=== PATIENT | female | born 1965 | race American Indian/Alaskan Native ===

== ENCOUNTER 2017-12-04 15:52 | Emergency (ER) | payer SELFPAY ==
[2017-12-04] MEDS ORDERED: TYLENOL ONE (16:06)
[2017-12-04] MEDS ORDERED: TYLENOL PO ONE (16:31)
[2017-12-04] MEDS ORDERED: TORADOL IM ONE (19:52)
[2017-12-04] MEDS ORDERED: DELTASONE PO ONE (19:52)
--- NOTE | 2017-12-04 19:53 | Emergency Department Report ---
HPI - General Chief Complaint: Extremity Injury, Lower Time Seen by Provider: 12/04/17 19:43 - HPI HPI: She is a 52-year-old female with hypertension controlled with medication who presents to ED complaining of left upper thigh incline pain 4 days. Patient states 4 days ago she started to experience some left upper thigh groin to hip pain. Patient states she did not fall or sustain any injury. Patient describes pain as constant, tingling, throbbing aching sensation that left upper side anterior thigh area. Patient states pain is aggravated with movement. Patient states she is not diabetic. She denies any calf pain or swelling. She denies any swelling in the groin area. ED Past Medical Hx - Past Medical History Hx Hypertension: Yes Hx Congestive Heart Failure: No Hx Diabetes: No Hx Psychiatric Treatment: Yes (Anxiety, Panic Attacks) Hx Asthma: No Hx COPD: No Additional medical history: fibroids, mitral valve prolapse - Surgical History Additional Surgical History: , right knee surgery - Social History Smoking Status: Never Smoker Substance Use Type: None - Medications Home Medications: Home Medications Medication Instructions Recorded Confirmed Last Taken Type Atenolol [Tenormin] 25 mg PO DAILY #30 tablet 01/21/14 09/08/16 09/08/16 Rx Triamter/Hctz 37.5-25 mg 1 cap PO DAILY #30 02/12/15 09/08/16 09/08/[address] (Nf) 50 mg PO BID #30 tablet. 12/04/17 Unknown Rx traMADol [Ultram 50 MG tab] 50 mg PO Q6HR PRN #20 tablet 12/04/17 Unknown Rx ED Review of Systems ROS: Stated complaint: LEFT LEG PAIN/GROIN PAIN Other details as noted in HPI Constitutional: denies: chills, fever Eyes: denies: eye pain, eye discharge, vision change ENT: denies: ear pain, throat pain Respiratory: denies: cough, shortness of breath, wheezing Cardiovascular: denies: chest pain, palpitations Endocrine: no symptoms reported Gastrointestinal: denies: abdominal pain, nausea, diarrhea Genitourinary: denies: urgency, dysuria, discharge Musculoskeletal: myalgia. denies: back pain, joint swelling, arthralgia Skin: denies: rash, lesions, pruritus Neurological: denies: headache, weakness, numbness, paresthesias, confusion Psychiatric: denies: anxiety, depression Hematological/Lymphatic: denies: easy bleeding, easy bruising Physical Exam - Physical Exam Vital Signs: Vital Signs 12/04/17 12/04/17 15:55 16:31 Temperature 98.6 F Pulse Rate 116 H Respiratory 18 18 Rate Blood Pressure 162/96 O2 Sat by Pulse 100 Oximetry Physical Exam: GENERAL: Alert and oriented x3, no apparent distress, Normal Gait, atraumatic. HEAD: Head is normocephalic and a-traumatic. LUNGS: Symetrical with respiration, No wheezing, no rales or crackles, CTAB. HEART: S1, S2 present, regular rate and rhythm without murmur, no rubs, no gallops. Non tender to palpation BACK: Full range of motion, no spinal tenderness, nontender to palpation. EXTREMITIES/MUSCULOSKELETAL: No cyanosis, clubbing, rash, lesions or edema. Full ROM on all joints bilaterally. pedal Pulses 2+ bilaterally. LE and UE 5+ strength bilaterally, straight leg raise positive left side, tenderness, tenderness to palpation of upper anterior and lateral thigh. Homans sign negative NEUROLOGIC: The patient is cooperative with no focal neurologic deficits. Normal speech. Normal sensation in bilateral upper and lower extremities, No loss of sensation, . SKIN: Warm and dry, No lesions, No ulceration or induration present. ED Course Vital Signs 12/04/17 12/04/17 15:55 16:31 Temperature 98.6 F Pulse Rate 116 H Respiratory 18 18 Rate Blood Pressure 162/96 O2 Sat by Pulse 100 Oximetry ED Medical Decision Making - Radiology Data Radiology results: report reviewed, image reviewed FINAL REPORT EXAM: XR PELVIS 1-2V HISTORY: left hip pain TECHNIQUE: AP pelvis PRIORS: None. FINDINGS: No acute fractures are identified. The pubic symphysis and SI joints are intact. No evidence of hip fracture or dislocation. No bony lesions are identified. IMPRESSION: Negative no acute abnormalities seen Transcribed By: CHERELLE Dictated By: RAFY CESPEDES MD Electronically Authenticated By: RAFY CESPEDES MD Signed Date/Time: 12/04/17 0694 - Medical Decision Making This 52-year-old female presents with sciatic nerve vs muscle pain of the thigh ED course: Patient received Tylenol, Toradol and prednisone in ED. Pelvic x-ray shows no abnormalities I discussed all findings with the patient. 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 Patient reports feeling much better after the Toradol shot. She states that helped with her pain and she says a bit better. I discussed the patient to avoid stress activities. Vital signs are normal patient is in no acute distress. Patient unable to ambulate appropriately. Critical care attestation.: If time is entered above; I have spent that time in minutes in the direct care of this critically ill patient, excluding procedure time. ED Disposition Clinical Impression: Sciatica of left side without back pain, Left thigh pain, Myalgia Disposition: TO HOME OR SELFCARE Is pt being admited?: No Does the pt Need Aspirin: No Condition: Stable Instructions: Sciatica (ED), Trigger Point Pain (ED), Lumbar Radiculopathy (ED) , Arthralgia (ED) Additional Instructions: Make sure to follow up with the primary care physician as discussed. Take all your medications as you've been prescribed. If you have any worsening symptoms or develop new symptoms please return to ED immediately. Prescriptions: Diclofenac Dr (Nf) 50 mg PO BID #30 tablet. traMADol [Ultram 50 MG tab] 50 mg PO Q6HR PRN #20 tablet PRN Reason: Pain Referrals: MAYELA VINSON MD [Primary Care Provider] - 3-5 Days NOREEN LARKIN MD [Staff Physician] - 3-5 Days TRINITY JIANG MD [Staff Physician] - 3-5 Days [facility] [Outside] - 3-5 Days [facility] [Outside] - 3-5 Days [facility] [Outside] - 3-5 Days Forms: Work/School Release Form(ED) Time of Disposition: 21:30
--- NOTE | 2017-12-04 20:27 | XRay Report ---
FINAL REPORT EXAM: XR PELVIS 1-2V HISTORY: left hip pain TECHNIQUE: AP pelvis PRIORS: None. FINDINGS: No acute fractures are identified. The pubic symphysis and SI joints are intact. No evidence of hip fracture or dislocation. No bony lesions are identified. IMPRESSION: Negative no acute abnormalities seen
[2017-12-04 21:18] VITALS: BP 112/67
== END 2017-12-04 21:31 | disposition home or self-care (01) ==
LOC: ED 15:52
DX: M54.32 Sciatica, left side (principal); M79.652 Pain in left thigh; I10 Essential (primary) hypertension
CPT/HCPCS: 72170; 96372; 99283; J1885; J7512

== ENCOUNTER 2019-01-27 13:53 | Emergency (ER) | payer OTHER ==
[2019-01-27 14:09] VITALS: BP 156/100
--- NOTE | 2019-01-27 14:10 | Emergency Department Report ---
Blank Doc - Documentation Documentation: This is a 53 y.o. female that presents to ED with right groin pain and fever x 1 week. Ordered XR right hip. Fast track for further evaluation.
--- NOTE | 2019-01-27 15:02 | XRay Report ---
RIGHT HIP, 2 views: History: Right groin pain. The bony architecture is intact without evidence of fracture or dislocation. No significant soft tissue abnormality is seen. IMPRESSION: Normal right hip.
[2019-01-27] MEDS ORDERED: TORADOL IM ONE (17:41)
--- NOTE | 2019-01-27 17:53 | Emergency Department Report ---
ED Extremity Problem HPI - General Chief complaint: Extremity Injury, Lower Stated complaint: SEVERE PAIN GROIN/ PAIN ON SIDE Time Seen by Provider: 01/27/19 14:04 Source: patient Mode of arrival: Ambulatory Limitations: No Limitations - History of Present Illness Initial comments: Pt is a 53 yo female who presents with pain in her right gluteus and pain on her right, lateral hip radiating down the lateral side of her right leg. She states she has had the pain for approximately 3 months. She denies any fall or injury. She has been able to ambulate without difficulty. She states it feels like a throbbing pain. The patient states she often walks up steps. She has had similar pain previously on her left side and was seen in the ED and at that time diagnosed with sciatica. The patient denies any numbness, tingling, back pain, or weakness. She has not attempted any medication to relieve the pain. MD Complaint: extremity pain (right gluteus, right hip ) Onset/Timin -: month(s) Location: right, lower extremity History of Same: Yes Radiation: distal Severity scale (0 -10): 6 Quality: other (throbbing) Improves with: rest Worsens with: exertion, palpation Associated Symptoms: denies other symptoms - Related Data Previous Rx's Medication Instructions Recorded Last Taken Type RX: Atenolol [Tenormin] 25 mg PO DAILY #30 tablet 01/21/14 09/08/16 Rx Triamter/Hctz 37.5-25 mg 1 cap PO DAILY #30 02/12/15 09/08/16 Rx RX: Potassium Chloride 10 meq PO DAILY #3 capsule.er 11/10/18 Unknown Rx RX: Naproxen 250 mg PO Q8HR PRN #20 tablet 01/27/19 Unknown Rx Tizanidine HCl [Zanaflex] 2 mg PO DAILY PRN #10 capsule 01/27/19 Unknown Rx Allergies Allergy/AdvReac Type Severity Reaction Status Date / Time lisinopril Allergy Anaphylaxis Verified 09/10/14 00:53 ED Review of Systems ROS: Stated complaint: SEVERE PAIN GROIN/ PAIN ON SIDE Other details as noted in HPI Comment: All other systems reviewed and negative Musculoskeletal: as per HPI ED Past Medical Hx - Past Medical History Hx Hypertension: Yes Hx Congestive Heart Failure: No Hx Diabetes: No Hx Psychiatric Treatment: Yes (Anxiety, Panic Attacks) Hx Asthma: No Hx COPD: No Additional medical history: fibroids, mitral valve prolapse - Surgical History Past Surgical History?: Yes Additional Surgical History: , right knee surgery - Social History Smoking Status: Never Smoker Substance Use Type: None - Medications Home Medications: Home Medications Medication Instructions Recorded Confirmed Last Taken Type RX: Atenolol [Tenormin] 25 mg PO DAILY #30 tablet 01/21/14 09/08/16 09/08/16 Rx Triamter/Hctz 37.5-25 mg 1 cap PO DAILY #30 02/12/15 09/08/16 09/08/16 Rx RX: Potassium Chloride 10 meq PO DAILY #3 capsule.er 11/10/18 Unknown Rx RX: Naproxen 250 mg PO Q8HR PRN #20 tablet 01/27/19 Unknown Rx Tizanidine HCl [Zanaflex] 2 mg PO DAILY PRN #10 capsule 01/27/19 Unknown Rx ED Physical Exam - General Limitations: No Limitations General appearance: alert, in no apparent distress - Head Head exam: Present: atraumatic, normocephalic - Eye Eye exam: Present: normal appearance - ENT ENT exam: Present: mucous membranes moist - Extremities Exam Extremities exam: Present: other (TTP over the right gluteus muscle, TTP over the right IT band, FROM of RLE ) ED Course Vital Signs 01/27/19 14:05 Temperature 98.3 F Pulse Rate 89 Respiratory 16 Rate Blood Pressure 156/100 O2 Sat by Pulse 97 Oximetry ED Medical Decision Making - Radiology Data Radiology results: image reviewed XR right hip with no acute abnormality - Medical Decision Making XR of right hip shows no acute abnormality. Pt is able to ambulate without difficulty and has FROM of RLE. Will give pt an anti-inflammatory and will give muscle relaxer to take at night. Advised pt not to drive with muscle relaxer. Advised pt to follow up with Dr. Roland if continuing to have the discomfort. Advised to follow up in ED if new or worsening sx. - Differential Diagnosis Muscle strain, IT band syndrome, Sciatica Critical care attestation.: If time is entered above; I have spent that time in minutes in the direct care of this critically ill patient, excluding procedure time. ED Disposition Clinical Impression: Muscle strain of gluteal region Qualifiers: Encounter type: initial encounter Laterality: right Qualified Code(s): S76.011A - Strain of muscle, fascia and tendon of right hip, initial encounter IT band syndrome Qualifiers: Laterality: right Qualified Code(s): M76.31 - Iliotibial band syndrome, right leg HTN (hypertension) Qualifiers: Hypertension type: essential hypertension Qualified Code(s): I10 - Essential (primary) hypertension Disposition: - TO HOME OR SELFCARE Is pt being admited?: No Does the pt Need Aspirin: No Condition: Stable Instructions: Muscle Strain (ED), Hypertension (ED) Additional Instructions: Advised pt to follow up with ramila Jain if continue to have pain. Advised pt to only take the zanflex once at night to help with muscle spasms and cannot drive while taking the medication. Advised pt to follow up with PCP in the next few days. Discussed with pt if new or worsening sx then return to the ED. Prescriptions: RX: Naproxen 250 mg PO Q8HR PRN #20 tablet PRN Reason: Pain, Moderate (4-6) Tizanidine HCl [Zanaflex] 2 mg PO DAILY PRN #10 capsule PRN Reason: Muscle Spasm Referrals: [facility] SARABJIT [Primary Care Provider] - 3-5 Days ROZINA ROLAND MD [Staff Physician] - 3-5 Days Print Language: SLOVENIAN
== END 2019-01-27 18:09 | disposition home or self-care (01) ==
LOC: ED 13:53
DX: S76.011A Strain of muscle, fascia and tendon of right hip, initial encounter (principal); M76.31 Iliotibial band syndrome, right leg; I10 Essential (primary) hypertension; Z88.8 Allergy status to other drugs, medicaments and biological substances; W10.8XXA Fall (on) (from) other stairs and steps, initial encounter; Y93.89 Activity, other specified; Y92.89 Other specified places as the place of occurrence of the external cause; Y99.8 Other external cause status
CPT/HCPCS: 73502; 96372; 99283; J1885

== ENCOUNTER 2020-09-10 22:35 | Emergency (ER) | payer MEDICAID ==
[2020-09-10 23:35] LABS: Calcium 9.4 mg/dL (8.4-10.2); Hematocrit 41.5 % (30.3-42.9); Hemoglobin 13.4 gm/dl (10.1-14.3); Mean Corpuscular HGB Conc 32 % (30-34); Mean Corpuscular Volume 84 fl (79-97); Platelet Count 170 K/mm3 (140-440); Red Blood Count 4.95 M/mm3 (3.65-5.03); Red Cell Distribution Width 14.2 % (13.2-15.2)
[2020-09-11] MEDS ORDERED: POTASSIUM CHLORIDE ER 20 MEQ TAB PO ONE (02:55)
[2020-09-11 02:59] LABS: Anisocytosis 1+; Total Cells Counted 100
[2020-09-11 03:00] LABS: Platelet Estimate Consistent w Auto
[2020-09-11] MEDS ORDERED: SODIUM CHLORIDE 0.9% 500 ML 500 ML IV ONE (03:10)
[2020-09-11] MEDS ORDERED: MORPHINE 4 MG/1 ML INJ IV ONE (03:10)
--- NOTE | 2020-09-11 03:19 | Emergency Department Report ---
HPI - General Chief Complaint: Fever Time Seen by Provider: 09/11/20 02:54 - HPI HPI: This is a 54-year-old female presents to the emergency department from home with complaint of generalized body pain that has been going on since earlier this afternoon. Patient also says that she felt warm earlier and checked her temperature and found that she had a low-grade fever, 100.2 F. She took some Tylenol for her symptoms prior to arrival. The patient has a history of right- sided breast cancer for which she is undergoing chemotherapy. The patient has a lso been receiving Neulasta every 2 weeks, and last received it about 1 week ago. Apparently the patient says that she was told that she could have some "bone pain" but says "I did not think it would be anything like this." She denies any rash, extremity swelling, chest pain, shortness of breath, cough, nausea, vomiting, sore throat. The patient had a left-sided chest port placed on the fifth of this month. She called her oncologist, Dr. Mixon ([facility]) and was told to come to the emergency department for further evaluation. Her breast surgeon is Dr. Sanders. ED Past Medical Hx - Past Medical History Previous Medical History?: Yes Hx Hypertension: Yes Hx Congestive Heart Failure: No Hx Diabetes: No Hx of Cancer: Yes (Breast) Hx Psychiatric Treatment: Yes (Anxiety, Panic Attacks) Hx Asthma: No Hx COPD: No Additional medical history: fibroids, mitral valve prolapse - Surgical History Past Surgical History?: Yes Additional Surgical History: , right knee surgery - Social History Smoking Status: Never Smoker Substance Use Type: None - Medications Home Medications: Home Medications Medication Instructions Recorded Confirmed Last Taken Type atenoloL [Tenormin] 25 mg PO DAILY #30 tablet 01/21/14 09/08/16 09/08/16 Rx Triamter/Hctz 37.5-25 mg 1 cap PO DAILY #30 02/12/15 09/08/16 09/08/16 Rx Potassium Chloride 10 meq PO DAILY #3 capsule.er 11/10/18 Unknown Rx Tizanidine HCl [Zanaflex] 2 mg PO DAILY PRN #10 capsule 01/27/19 Unknown Rx HYDROcodone/APAP 5-325 [[place] 1 each PO Q4HR PRN #12 tablet 07/30/20 Unknown Rx 5/325] Naproxen 500 mg PO Q12HR PRN #20 tablet 07/30/20 Unknown Rx Potassium Chloride 40 meq PO DAILY 30 Days #30 liquid 07/30/20 Unknown Rx oxyCODONE /ACETAMINOPHEN [Percocet 1 tab PO Q6HR PRN #12 tablet 09/11/20 Unknown Rx 5/325] ED Review of Systems ROS: Stated complaint: FEVER AFTER CHEMO TREAT Other details as noted in HPI Comment: All other systems reviewed and negative Constitutional: chills, fever Eyes: denies: eye pain, vision change ENT: denies: ear pain, throat pain Respiratory: denies: cough, shortness of breath Cardiovascular: denies: chest pain, palpitations Gastrointestinal: denies: abdominal pain, vomiting Genitourinary: denies: dysuria, discharge Musculoskeletal: back pain, arthralgia, myalgia. denies: joint swelling Skin: denies: rash, lesions Neurological: denies: numbness, paresthesias Physical Exam - Physical Exam Vital Signs: Vital Signs 09/10/20 22:46 Temperature 98.9 F Pulse Rate 100 H Respiratory 18 Rate Blood Pressure 124/75 O2 Sat by Pulse 98 Oximetry Physical Exam: GENERAL: The patient is well-developed well-nourished. HENT: Normocephalic. Atraumatic. Patient has moist mucous membranes. EYES: Extraocular motions are intact. NECK: Supple. Trachea is midline. CHEST/LUNGS: Clear to auscultation. There is no respiratory distress noted. HEART/CARDIOVASCULAR: Regular. There is no tachycardia. There is no murmur. ABDOMEN: Abdomen is soft, nontender. Patient has normal bowel sounds. SKIN: Skin is warm and dry. There is no erythema, fluctuance surrounding the left chest port. NEURO: The patient is awake, alert, and oriented. The patient is cooperative. The patient has no focal neurologic deficits. Normal speech. MUSCULOSKELETAL: Unable to reproduce or exacerbate the extremity tenderness to palpation. No obvious deformity. There is no limitation range of motion. ED Course Vital Signs 09/10/20 22:46 Temperature 98.9 F Pulse Rate 100 H Respiratory 18 Rate Blood Pressure 124/75 O2 Sat by Pulse 98 Oximetry ED Medical Decision Making - Lab Data Result diagrams: 09/10/20 22:52 09/10/20 22:52 - Radiology Data Radiology results: image reviewed interpreted by me: Chest x-ray does not show any acute process. There are no pleural effusions, o bvious pneumonia and there is no pneumothorax. No significant cardiomegaly. - Medical Decision Making This patient presents to the emergency department with a complaint of g eneralized body pain, worst in the extremities, that has been going on since earlier this afternoon. The patient also says that she had a low-grade fever prior to arrival and took some Tylenol. The patient has been afebrile here throughout her ED course. The rest of the vital signs are also reassuring. Her labs have been mostly unremarkable including CBC, metabolic panel, urinalysis, except for some mild hypokalemia and mild renal insufficiency. Patient was given oral potassium chloride for the potassium level of 3.2. The patient's GFR was 51 so she was given some IV fluid resuscitation in in case the mild renal insufficiency is secondary to dehydration. It also could be secondary to her home medications, chemotherapy or transfusions. I discussed this with the patient and she will avoid any anti-inflammatories/NSAIDs until follow-up with her primary care physician and oncologist. Chest x-ray did not show any pneumonia, pleural effusions, or any other acute process. Patient was given a dose of IV analgesia and upon reevaluation she is feeling greatly improved. She appears safe for discharge home at this time. She will be given a prescription for some pain medication and instructed to follow-up with primary care and oncology. She will return to the ER with any worsening of her symptoms or with any acute distress. Critical Care Time: No Critical care attestation.: If time is entered above; I have spent that time in minutes in the direct care of this critically ill patient, excluding procedure time. ED Disposition Clinical Impression: Whole body pain, History of breast cancer, Hypokalemia, Mild renal insufficiency Disposition: DC-01 TO HOME OR SELFCARE Is pt being admited?: No Condition: Stable Instructions: Arthralgia (ED) Additional Instructions: Please follow-up with your primary care physician, oncologist, and breast surgeon. Return to the emergency department with any worsening of your symptoms or with any acute distress. For now, until follow-up with your physicians, stay away from anti- inflammatories such as ibuprofen, Aleve, naproxen, Motrin and Advil. You have been prescribed a medication that is sedating and therefore should not be taken prior to driving, working, and responsible for children and in no way should be mixed with alcohol of any quantity. Prescriptions: oxyCODONE /ACETAMINOPHEN [Percocet 5/325] 1 tab PO Q6HR PRN #12 tablet PRN Reason: Pain Referrals: Oncologist, Your [Other] - 2-3 Days Time of Disposition: 04:50
--- NOTE | 2020-09-11 03:34 | XRay Report ---
CHEST 1 VIEW INDICATION / CLINICAL INFORMATION: SOB. COMPARISON: 11/10/2018 FINDINGS: SUPPORT DEVICES: Left subclavian Port-A-Cath is noted with the tip at the level of the superior vena cava HEART / MEDIASTINUM: No significant abnormality. LUNGS / PLEURA: No significant pulmonary or pleural abnormality.. No pneumothorax. ADDITIONAL FINDINGS: No significant additional findings. IMPRESSION: 1. No acute findings. Signer Name: Robbie Isabel MD Signed: 09/11/2020 3:29 AM Workstation Name: [id number]
[2020-09-11 04:04] LABS: Bilirubin,Urine NEG (Negative); Blood,Urine SM (Negative); Color,Urine Straw (Yellow); Protein,Urine <15 mg/dL mg/dL (Negative); Urobilinogen,Urine < 2.0 mg/dL (<2.0)
[2020-09-11 05:27] VITALS: BP 114/65
== END 2020-09-11 05:25 | disposition home or self-care (01) ==
LOC: ED 22:35
DX: N28.9 Disorder of kidney and ureter, unspecified (principal); E87.6 Hypokalemia; M79.10 Myalgia, unspecified site; Z85.3 Personal history of malignant neoplasm of breast; I10 Essential (primary) hypertension; F41.9 Anxiety disorder, unspecified; Z98.890 Other specified postprocedural states; Z79.899 Other long term (current) drug therapy; Z88.8 Allergy status to other drugs, medicaments and biological substances
CPT/HCPCS: 36415; 71045; 80048; 81001; 85007; 85025; 87400; 96361; 96374; 99284; J2270; J7040

== ENCOUNTER 2022-03-17 19:58 | Emergency (ER) | payer MEDICAID ==
[2022-03-17 20:14] VITALS: BP 133/83
[2022-03-17] MEDS ORDERED: IBUPROFEN 600 MG TAB PO ONE (22:11)
[2022-03-17] MEDS ORDERED: oxyCODONE /ACETAMINOPHEN 5-325MG TAB PO ONE (22:11)
[2022-03-17] MEDS ORDERED: ONDANSETRON 4 MG ODT TAB PO ONE ×2 (22:11→22:58)
[2022-03-17] MEDS ORDERED: methylPREDNISolone Sod Succinate 125 MG/2 ML INJ IM ONE (22:12)
[2022-03-17] MEDS ORDERED: FAMOTIDINE 20 MG TAB PO ONE (22:12)
[2022-03-17] MEDS ORDERED: hydrOXYzine HCL 100 MG/2 ML INJ IM ONE (22:12)
[2022-03-17] MEDS ORDERED: HYDROcodone/ACETAMINOPHEN 5-325 MG TAB PO ONE (22:58)
--- NOTE | 2022-03-17 23:13 | Emergency Department Report ---
ED Allergic Reaction HPI - General Chief complaint: Skin Rash Stated complaint: ITCHY/RASH ALL OVER BODY Source: patient Mode of arrival: Ambulatory Limitations: No Limitations - History of Present Illness Initial Comments: Patient is a 56-year-old -[place] female with a history of hypertension, panic attacks, anxiety and depression, mitral valve prolapse and breast cancer on chemotherapy presents to the ED with complaint of acute onset persistent diffuse itchy erythematous maculopapular rashes intermittently for the last 1 month, but worse in the last 1 week. Patient states that she has been taking Benadryl with no relief. Patient denies swollen lips or tongue, swollen throat, facial swelling, dysphagia, dysphonia, hoarseness, nausea, vomiting, diarrhea, abdominal pain, fever, chills, chest pain or shortness of breath, cough or wheezing. MD Complaint: allergic reaction, hives, other (Diffuse itchy rashes) -: Sudden, week(s) (1) Exposure: unknown Symptoms: rash, itching. denies: facial swelling, lip swelling, difficulty swallowing, difficulty breathing, orolingual swelling, hoarseness, syncopy, dizziness, nausea, vomiting, abdominal pain Severity: severe Treatment Prior to Arrival: benadryl Previous Allergy History: none - Related Data Previous Rx's Medication Instructions Recorded Last Taken Type atenoloL [Tenormin] 25 mg PO DAILY #30 tablet 01/21/14 09/08/16 Rx Triamter/Hctz 37.5-25 mg 1 cap PO DAILY #30 02/12/15 09/08/16 Rx Potassium Chloride 10 meq PO DAILY #3 capsule.er 11/10/18 Unknown Rx Tizanidine HCl [Zanaflex] 2 mg PO DAILY PRN #10 capsule 01/27/19 Unknown Rx HYDROcodone/APAP 5-325 [[place] 1 each PO Q4HR PRN #12 tablet 07/30/20 Unknown Rx 5/325] Naproxen 500 mg PO Q12HR PRN #20 tablet 07/30/20 Unknown Rx Potassium Chloride 40 meq PO DAILY 30 Days #30 liquid 07/30/20 Unknown Rx oxyCODONE /ACETAMINOPHEN [Percocet 1 tab PO Q6HR PRN #12 tablet 09/11/20 Unknown Rx 5/325] Famotidine [Pepcid] 20 mg PO BID #60 tablet 03/17/22 Unknown Rx Prednisone [predniSONE 10 mg 10 mg PO .TAPER #21 tab 03/17/22 Unknown Rx (6-Day Pack, 21 Tabs)] hydrOXYzine PAMOATE [Vistaril] 50 mg PO Q8HR PRN #40 capsule 03/17/22 Unknown Rx Allergies Allergy/AdvReac Type Severity Reaction Status Date / Time lisinopril Allergy Anaphylaxis Verified 09/10/14 00:53 ED Review of Systems ROS: Stated complaint: ITCHY/RASH ALL OVER BODY Other details as noted in HPI Constitutional: denies: chills, fever Eyes: denies: eye pain, eye discharge, vision change ENT: denies: ear pain, throat pain Respiratory: denies: cough, shortness of breath, wheezing Cardiovascular: denies: chest pain, palpitations Endocrine: no symptoms reported Gastrointestinal: denies: abdominal pain, nausea, vomiting, diarrhea Genitourinary: denies: urgency, dysuria, discharge Musculoskeletal: denies: back pain, joint swelling, arthralgia Skin: rash (Diffuse itchy erythematous urticarial rashes), change in color, pruritus. denies: lesions Neurological: denies: headache, weakness, paresthesias Psychiatric: denies: anxiety, depression Hematological/Lymphatic: denies: easy bleeding, easy bruising ED Past Medical Hx - Past Medical History Hx Hypertension: Yes Hx Congestive Heart Failure: No Hx Diabetes: No Hx of Cancer: Yes (Breast cancer on chemo) Hx Psychiatric Treatment: Yes (Anxiety, Panic Attacks) Hx Asthma: No Hx COPD: No Additional medical history: fibroids, mitral valve prolapse - Surgical History Additional Surgical History: , right knee surgery - Social History Smoking Status: Never Smoker Substance Use Type: None - Medications Home Medications: Home Medications Medication Instructions Recorded Confirmed Last Taken Type atenoloL [Tenormin] 25 mg PO DAILY #30 tablet 01/21/14 09/08/16 09/08/16 Rx Triamter/Hctz 37.5-25 mg 1 cap PO DAILY #30 02/12/15 09/08/16 09/08/16 Rx Potassium Chloride 10 meq PO DAILY #3 capsule.er 11/10/18 Unknown Rx Tizanidine HCl [Zanaflex] 2 mg PO DAILY PRN #10 capsule 01/27/19 Unknown Rx HYDROcodone/APAP 5-325 [[place] 1 each PO Q4HR PRN #12 tablet 07/30/20 Unknown Rx 5/325] Naproxen 500 mg PO Q12HR PRN #20 tablet 07/30/20 Unknown Rx Potassium Chloride 40 meq PO DAILY 30 Days #30 liquid 07/30/20 Unknown Rx oxyCODONE /ACETAMINOPHEN [Percocet 1 tab PO Q6HR PRN #12 tablet 09/11/20 Unknown Rx 5/325] Famotidine [Pepcid] 20 mg PO BID #60 tablet 03/17/22 Unknown Rx Prednisone [predniSONE 10 mg 10 mg PO .TAPER #21 tab 03/17/22 Unknown Rx (6-Day Pack, 21 Tabs)] hydrOXYzine PAMOATE [Vistaril] 50 mg PO Q8HR PRN #40 capsule 03/17/22 Unknown Rx ED Physical Exam - General Limitations: No Limitations General appearance: alert, in no apparent distress - Head Head exam: Present: atraumatic, normocephalic, normal inspection - Eye Eye exam: Present: normal appearance, PERRL, EOMI Pupils: Present: normal accommodation - ENT ENT exam: Present: normal exam, normal orophraynx, mucous membranes moist, TM's normal bilaterally, normal external ear exam - Neck Neck exam: Present: normal inspection, full ROM. Absent: tenderness - Respiratory Respiratory exam: Present: normal lung sounds bilaterally. Absent: respiratory distress, wheezes, rhonchi, chest wall tenderness, accessory muscle use, decreased breath sounds - Cardiovascular Cardiovascular Exam: Present: normal rhythm, tachycardia, normal heart sounds. Absent: systolic murmur, diastolic murmur, rubs, gallop - GI/Abdominal GI/Abdominal exam: Present: soft, normal bowel sounds. Absent: tenderness, guarding, rebound, hyperactive bowel sounds, hypoactive bowel sounds, mass - Extremities Exam Extremities exam: Present: normal inspection, full ROM, normal capillary refill. Absent: tenderness - Back Exam Back exam: Present: normal inspection, full ROM. Absent: tenderness, CVA tenderness (L), muscle spasm, paraspinal tenderness - Neurological Exam Neurological exam: Present: alert, oriented X3, CN II-XII intact, normal gait, reflexes normal - Psychiatric Psychiatric exam: Present: normal affect, normal mood - Skin Skin exam: Present: warm, dry, intact, normal color, rash (Diffuse itchy erythematous maculopapular urticarial rashes), erythema, urticaria ED Course Vital Signs 03/17/22 20:13 Temperature 98.3 F Pulse Rate 111 H Respiratory 16 Rate Blood Pressure 133/83 O2 Sat by Pulse 97 Oximetry ED Medical Decision Making - Medical Decision Making This is a 56-year-old -[place] female with a history of hypertension, panic attacks, anxiety and depression, mitral valve prolapse and breast cancer on chemotherapy presents to the ED with complaint of acute onset persistent diffuse itchy erythematous maculopapular rashes intermittently for the last 1 month, but worse in the last 1 week. Patient states that she has been taking Benadryl with no relief. In the ED, patient is alert and oriented x3 and is not in any distress. Patient however anxious and tachycardic but afebrile in triage. Patient was treated for suspected acute allergic reaction with steroids, Vistaril and Pepcid. On reevaluation, patient's itching resolved with medication. Patient was discharged home on medications and advised to follow- up with her primary care physician in 7 to 10 days for reevaluation or return to the ED immediately if symptoms get worse - Differential Diagnosis Acute allergic reaction; hives; urticaria; return dermatitis Critical care attestation.: If time is entered above; I have spent that time in minutes in the direct care of this critically ill patient, excluding procedure time. ED Disposition Clinical Impression: Acute allergic reaction, Acute urticaria, Itching with irritation Disposition: HOME / SELF CARE / HOMELESS Is pt being admited?: No Does the pt Need Aspirin: No Condition: Stable Instructions: Allergies, Adult, [id number], Hives, [id number], Allergies, Adult, Rash, Adult, [id number] Additional Instructions: Take medication with food, drink plenty of fluids and follow-up with your primary care physician in 7 to 10 days for reevaluation. Return to the ED immediately if symptoms get worse. Prescriptions: Famotidine [Pepcid] 20 mg PO BID #60 tablet Prednisone [predniSONE 10 mg (6-Day Pack, 21 Tabs)] 10 mg PO .TAPER #21 tab hydrOXYzine PAMOATE [Vistaril] 50 mg PO Q8HR PRN #40 capsule PRN Reason: Itching Referrals: [facility] [Provider Group] - 3-5 Days Time of Disposition: 23:13 Print Language: VINCENTIAN
== END 2022-03-17 23:41 | disposition home or self-care (01) ==
LOC: ED 19:58
DX: L50.9 Urticaria, unspecified (principal); T78.40XA Allergy, unspecified, initial encounter; L29.9 Pruritus, unspecified; X58.XXXA Exposure to other specified factors, initial encounter
CPT/HCPCS: 96372; 99282; J2930; J3410; J3490; Q0162

== ENCOUNTER 2022-07-10 18:19 | Emergency (ER) | payer MEDICAID ==
[2022-07-10 19:57] LABS: Basophils % (Auto) 0.5 % (0.0-1.8); Eosinophils # (Auto) 0.1 K/mm3 (0.0-0.4); Eosinophils % (Auto) 1.1 % (0.0-4.3); Hemoglobin 11.9 gm/dl (10.1-14.3); Lymphocytes # (Auto) 2.1 K/mm3 (1.2-5.4); Lymphocytes % (Auto) 42.2 % (13.4-35.0); Mean Corpuscular HGB Conc 33 % (30-34); Mean Corpuscular Volume 83 fl (79-97); Monocytes # (Auto) 0.4 K/mm3 (0.0-0.8); Monocytes % (Auto) 7.7 % (0.0-7.3); Platelet Count 269 K/mm3 (140-440); Red Blood Count 4.33 M/mm3 (3.65-5.03); Red Cell Distribution Width 14.3 % (13.2-15.2)
[2022-07-10 20:30] LABS: Alanine Aminotransferase 11 units/L (7-56); Albumin 4.2 g/dL (3.9-5); BUN/Creatinine Ratio 15; Blood Urea Nitrogen 17 mg/dL (7-17); Hemolysis Index 44
[2022-07-11] MEDS ORDERED: POTASSIUM CHLORIDE ER 20 MEQ TAB PO ONE (03:03)
[2022-07-11] MEDS: POTASSIUM CHLORIDE 10 MEQ 10 MEQ/100 ML BAG IV SCH ×3 (04:15→08:12)
[2022-07-11] MEDS ORDERED: SODIUM CHLORIDE 0.9% 1000 ML 1,000 ML ONE (06:38)
--- NOTE | 2022-07-11 07:09 | Emergency Department Report ---
ED General Adult HPI - General Chief complaint: Pain General Stated complaint: ARM PAIN AND SHOULDER/CHEST PAIN Time Seen by Provider: 07/11/22 06:20 Source: patient Mode of arrival: Ambulatory Limitations: No Limitations - History of Present Illness Initial comments: 56-year-old female with a history of breast cancer who was sent in from cancer center last night for further evaluation on hypokalemia. Patient went to see oncology for generalized body pain and labs were ordered and noted potassium to be 2.6. Patient has history of chronic hypokalemia as far back as record shows in 2020. Patient reported that she used to be on thiazide diuretics which was discontinued because of the abnormal potassium. Patient however denied any chest palpitation or chest pain or shortness of breath. No other modifying or associated factors reported. Severity scale (0 -10): 7 - Related Data Previous Rx's Medication Instructions Recorded Last Taken Type atenoloL [Tenormin] 25 mg PO DAILY #30 tablet 01/21/14 09/08/16 Rx Triamter/Hctz 37.5-25 mg 1 cap PO DAILY #30 02/12/15 09/08/16 Rx Potassium Chloride 10 meq PO DAILY #3 capsule.er 11/10/18 Unknown Rx Tizanidine HCl [Zanaflex] 2 mg PO DAILY PRN #10 capsule 01/27/19 Unknown Rx HYDROcodone/APAP 5-325 [[place] 1 each PO Q4HR PRN #12 tablet 07/30/20 Unknown Rx 5/325] Naproxen 500 mg PO Q12HR PRN #20 tablet 07/30/20 Unknown Rx Potassium Chloride 40 meq PO DAILY 30 Days #30 liquid 07/30/20 Unknown Rx oxyCODONE /ACETAMINOPHEN [Percocet 1 tab PO Q6HR PRN #12 tablet 09/11/20 Unknown Rx 5/325] Famotidine [Pepcid] 20 mg PO BID #60 tablet 03/17/22 Unknown Rx Prednisone [predniSONE 10 mg 10 mg PO .TAPER #21 tab 03/17/22 Unknown Rx (6-Day Pack, 21 Tabs)] hydrOXYzine PAMOATE [Vistaril] 50 mg PO Q8HR PRN #40 capsule 03/17/22 Unknown Rx Allergies Allergy/AdvReac Type Severity Reaction Status Date / Time lisinopril Allergy Anaphylaxis Verified 10/17/14 00:53 ED Review of Systems ROS: Stated complaint: ARM PAIN AND SHOULDER/CHEST PAIN Other details as noted in HPI Comment: All other systems reviewed and negative (Abnormal labs) Endocrine: denies: intolerance to cold, intolerance to heat, increased thirst Musculoskeletal: myalgia ED Past Medical Hx - Past Medical History Hx Hypertension: Yes Hx Congestive Heart Failure: No Hx Diabetes: No Hx Psychiatric Treatment: Yes (Anxiety, Panic Attacks) Hx Asthma: No Hx COPD: No Additional medical history: fibroids, mitral valve prolapse - Surgical History Additional Surgical History: , right knee surgery - Social History Smoking Status: Never Smoker Substance Use Type: None - Medications Home Medications: Home Medications Medication Instructions Recorded Confirmed Last Taken Type atenoloL [Tenormin] 25 mg PO DAILY #30 tablet 01/21/14 09/08/16 09/08/16 Rx Triamter/Hctz 37.5-25 mg 1 cap PO DAILY #30 02/12/15 09/08/16 09/08/16 Rx Potassium Chloride 10 meq PO DAILY #3 capsule.er 11/10/18 Unknown Rx Tizanidine HCl [Zanaflex] 2 mg PO DAILY PRN #10 capsule 01/27/19 Unknown Rx HYDROcodone/APAP 5-325 [[place] 1 each PO Q4HR PRN #12 tablet 07/30/20 Unknown Rx 5/325] Naproxen 500 mg PO Q12HR PRN #20 tablet 07/30/20 Unknown Rx Potassium Chloride 40 meq PO DAILY 30 Days #30 liquid 07/30/20 Unknown Rx oxyCODONE /ACETAMINOPHEN [Percocet 1 tab PO Q6HR PRN #12 tablet 09/11/20 Unknown Rx 5/325] Famotidine [Pepcid] 20 mg PO BID #60 tablet 03/17/22 Unknown Rx Prednisone [predniSONE 10 mg 10 mg PO .TAPER #21 tab 03/17/22 Unknown Rx (6-Day Pack, 21 Tabs)] hydrOXYzine PAMOATE [Vistaril] 50 mg PO Q8HR PRN #40 capsule 03/17/22 Unknown Rx ED Physical Exam - General Limitations: No Limitations General appearance: alert, in no apparent distress - Head Head exam: Present: normal inspection - Eye Eye exam: Present: normal appearance Pupils: Present: normal accommodation - ENT ENT exam: Present: normal exam, normal orophraynx, mucous membranes dry - Neck Neck exam: Present: normal inspection, full ROM. Absent: tenderness - Respiratory Respiratory exam: Present: normal lung sounds bilaterally. Absent: respiratory distress, chest wall tenderness, accessory muscle use - Cardiovascular Cardiovascular Exam: Present: regular rate, normal rhythm, normal heart sounds - GI/Abdominal GI/Abdominal exam: Present: soft, normal bowel sounds. Absent: distended, tenderness - Extremities Exam Extremities exam: Present: normal inspection, full ROM, normal capillary refill. Absent: tenderness, pedal edema, joint swelling - Back Exam Back exam: Absent: tenderness - Neurological Exam Neurological exam: Present: alert, oriented X3 - Psychiatric Psychiatric exam: Present: normal affect, normal mood - Skin Skin exam: Present: warm, normal color ED Course Vital Signs 07/10/22 18:52 Temperature 98.9 F Pulse Rate 87 Respiratory 14 Rate Blood Pressure 140/83 [Right] O2 Sat by Pulse 100 Oximetry ED Medical Decision Making - Lab Data Result diagrams: 07/10/22 19:23 07/10/22 19:23 - EKG Data -: EKG Interpreted by [facility] EKG shows normal: sinus rhythm Rate: normal - EKG Data Interpretation: nonspecific ST-T wave dariana - Medical Decision Making Evaluate abnormal potassium with generalized muscle aches---with a history of chronic hypokalemia-- the low potassium likely contributed to the muscle aches---sent in from the Cancer center with level 2.6 -- will go ahead and repeat -- which noted to be 3.0-- EKG did not show any changes-- will go ahead and replace and get patient started on supplement with close follow up with her PCP/ Oncologist-- Pt had 40 meq PO x 1 and 10 mEq x 2 -- denies any chest pain or sob or palpitation-- will have patient call and follow up with her oncologist and PCP for repeat-- She also mentioned that potassium supplement prescription has been sent to [facility] pharmacy for her... Critical care attestation.: If time is entered above; I have spent that time in minutes in the direct care of this critically ill patient, excluding procedure time. ED Disposition Clinical Impression: Generalized body aches, Hypokalemia Disposition: 01 HOME / SELF CARE / HOMELESS Is pt being admited?: No Does the pt Need Aspirin: No Condition: Stable Instructions: Hypokalemia, Potassium Content of Foods Additional Instructions: Call and schedule follow-up with your oncology/primary doctor in the next 3 to 5 days for repeat of your chemistry specifically your potassium level to determine if you need to continue to supplement or discontinue. Increase your daily fluid to help your hydration Please do not hesitate to call or return to emergency room if your symptoms worsen Time of Disposition: 08:40
[2022-07-11 09:38] VITALS: BP 116/77
--- NOTE | 2022-07-11 13:13 | Electrocardiograph Report ---
[facility] Test Date: 2022-07-10 Test Time: 18:59:43 Pat Name: BEN KITCHEN Department: Room: Gender: F Game [employer] Host: SANJIV : 1965 Requested By: ISHAN MOLINA Order Number: [id number] Reading MD: Kody Valdez Measurements Intervals [place] Rate: 77 P: 44 MS: 166 QRS: -6 QRSD: 89 T: -1 QT: 424 QTc: 481 Interpretive Statements Sinus rhythm Nonspecific T abnormalities, diffuse leads No previous ECG available for comparison Electronically Signed On 07-11-2022 13:13:17 EDT by Kody Valdez
== END 2022-07-11 09:38 | disposition home or self-care (01) ==
LOC: ED 18:19
DX: M79.10 Myalgia, unspecified site (principal); E87.6 Hypokalemia; I10 Essential (primary) hypertension; F41.9 Anxiety disorder, unspecified; Z91.09 Other allergy status, other than to drugs and biological substances; Z79.899 Other long term (current) drug therapy
CPT/HCPCS: 36415; 80053; 83735; 85025; 93005; 99283; J3480; J7030; 96374